=== PATIENT | male | born 2005 ===

== ENCOUNTER 2024-08-28 09:41 | Outpatient (RCR) | payer OTHER, SELFPAY ==
--- NOTE | 2024-08-28 10:57 | OPREHPOC ---
Outpatient Therapy Plan of Care This is a Multidisciplinary Plan of Care that may contain components documented by all disciplines (PT, OT, and ST.) PT Problem 1 PT Problem #1 Knowledge Deficit PT Goal 1 Goal / Goal Update 1. independent and compliant with HEP Target Visit 3 PT Problem 2 PT Problem #2 Pain PT Goal 1 Goal / Goal Update 1. 2/10 or less pain at worst in the L knee Target Visit 6 PT Problem 3 PT Problem #3 Impaired Range of Motion PT Goal 1 Goal / Goal Update 1. 0-125 degrees L knee active rom Target Visit 6 PT Problem 4 PT Problem #4 Impaired Strength PT Goal 1 Goal / Goal Update 1. 5/5 L knee extension Target Visit 6 PT Problem 5 PT Problem #5 Impaired Functional Mobil PT Goal 1 Goal / Goal Update 1. LEFS to display less than 20% functional deficits 2. normal gait mechanics 3. reciprocal pattern up and down steps 4. squat safely without pain or symptoms Target Visit 6
--- NOTE | 2024-08-28 10:57 | PTOPEVAL1 ---
Assessment and note entered by JT File, PT Evaluation Information Assessment Status Evaluation ICD-10 Condition Codes (PT) Pain in left knee M25.562 Onset 08/20/24 Subjective Information patient reports he has had trouble with his knees since playing sports when he was younger. 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 he reports it shot pain from the L knee down to the toes/feet and made his toes go numb. he reports the knee will pop from time to time and will be painful. he reports he feels the knee is going to give out on him at any time. he reports no major injuries to the knees when playing sports. he reports he was not able to get an MRI prior to trying therapy. he reports he has not seen an ortho. he was told by his PCP to try PT for 2 weeks then they can refer to an ortho if needed. he reports he works in a [employer]. 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 Reported Pain Level Pain Score 4: Self Report Assessment PT Clinical Summary mr. vaughan is a 18 yo man who presents to skilled PT for evaluation and treatment of L knee pain. he injured his L knee coming down from a forklift. he felt immediate pain, and his knee has continued to feel bad/worse since. he presents today with deficits in rom and strength of the L knee, pain with palpation around the medial jt line, and special testing that may indicate a meniscus injury to the L knee. he is mostly guarded with all special tests, but medial mcmurrays elicits the most pain/symptoms today. he would benefit from continued skilled PT to address his objective /functional deficits to return to prior level functional activity performance/quality of life. Plan of Care Interventions Electrical Stimulation,Gait Training,Hot Pack/Cold Pack,Manual Therapy,Neuro Re-education,Patient/ Caregiver Educati,Therapeutic Activities, Therapeutic Exercise PT Services Indicated Yes Treatment Frequency and 3x weekly for 6 visits Duration These treatments will address the objective and functional deficits as defined above. The patient will be advanced safely and appropriately in order for the patient to progress towards his/her prior level of function. Additional exercises will be introduced and as well as a comprehensive home exercise program upon discharge, if needed, ?to ensure carryover of functional gains achieved in the clinic. This treatment plan has been reviewed and agreement upon by the patient.
--- NOTE | 2024-08-30 14:02 | PCPTNOTE ---
Cancelled session due to flat tire.
--- NOTE | 2024-09-10 17:26 | OPREHPOC ---
Outpatient Therapy Plan of Care This is a Multidisciplinary Plan of Care that may contain components documented by all disciplines (PT, OT, and ST.) PT Problem 1 PT Problem #1 Knowledge Deficit PT Goal 1 Goal / Goal Update 1. independent and compliant with HEP Target Visit 3 Progress Met PT Problem 2 PT Problem #2 Pain PT Goal 1 Goal / Goal Update 1. 2/10 or less pain at worst in the L knee Target Visit 6 Progress Met PT Problem 3 PT Problem #3 Impaired Range of Motion PT Goal 1 Goal / Goal Update 1. 0-125 degrees L knee active rom Target Visit 6 Progress Met PT Problem 4 PT Problem #4 Impaired Strength PT Goal 1 Goal / Goal Update 1. 5/5 L knee extension Target Visit 6 Progress Met PT Problem 5 PT Problem #5 Impaired Functional Mobility PT Goal 1 Goal / Goal Update 1. LEFS to display less than 20% functional deficits 2. normal gait mechanics 3. reciprocal pattern up and down steps 4. squat safely without pain or symptoms Target Visit 6 Progress Met
--- NOTE | 2024-09-10 17:27 | PTOPDC ---
Assessment and note entered by JT File, PT Evaluation Information Assessment Status Discharge ICD-10 Condition Codes (PT) Pain in left knee M25.562 Onset 08/20/24 Subjective Information patient reports he feels Better today. he reports he has no pain in the R knee. he reports he has been back to work full hours and full duties. he reports he does not have a return to MD visit. Reported Pain Level Pain Score 0: Self Report Assessment PT Clinical Summary mr. vaughan presents to skilled PT services for his 6th skilled PT visit. he has met all goals for skilled PT, has no pain, and is back to full prior level work and rec activities. he will DC skilled PT to an independent HEP. he was advised to watch the knee and return to MD or PT with any return of pain/flare ups. Plan of Care PT Services Indicated Yes
== END 2024-09-10 17:29 | disposition home or self-care (01) ==
LOC: CHSPT 09:41
PROVIDERS: Visit Provider Nurse Practitioner
DX: M25.562 Pain in left knee (principal)
CPT/HCPCS: 97110; 97140; 97161; 97530

== ENCOUNTER 2025-03-12 15:05 | Emergency (ER) | payer OTHER, SELFPAY ==
[2025-03-12 15:19] VITALS: BP 148/78; PULSE 83; RESP 16; TEMP 37.1; O2SAT 99
--- NOTE | 2025-03-12 15:52 | ED.HEATRA ---
HPI - Head Injury General Chief complaint: Head Injury Stated complaint: Head Injury Time Seen by Provider: 03/12/25 15:34 Source: patient and RN notes reviewed Mode of arrival: ambulatory Limitations: no limitations History of Present Illness HPI Narrative: Patient presents today after he was struck on the head with a closing truck merritt while at work. 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 Denies loss of consciousness. Injury occurred approximately 1 hour prior to exam. Reports headache that he currently rates 6/10, mild wooziness, and difficulty focusing his eyes. Denies neck pain, vomiting. Related Data Allergies Allergy/AdvReac Type Severity Reaction Status Date / Time No Known Allergies Allergy Verified 03/12/25 15:23 Review of Systems Review of Systems: CONSTITUTIONAL: Denies body aches, fever, chills, or sweats. EYES: + vision change ENT: Denies rhinorrhea, congestion, sore throat, or otalgia. CARDIOVASCULAR: Denies chest pain, palpitations, or edema. RESPIRATORY: Denies cough or dyspnea. GASTROINTESTINAL: Denies abdominal pain, nausea, vomiting, or diarrhea. GENITOURINARY: Denies dysuria or hematuria. SKIN: Denies rash, itching, or wounds. MUSCULOSKELETAL: Denies back pain, joint pain, or myalgia. NEUROLOGIC: + head injury, headache, dizziness PSYCH: Denies depression or anxiety. PMFSH Comments At time of signature, I have reviewed and agree with nursing past medical, surgical, social and family history unless otherwise noted. Please see nursing chart for further information. There is no relevant family history pertinent to the presenting complaint Exam Narrative: GENERAL: Well-appearing, well-nourished, and in moderate pain distress. HEAD: Normocephalic. Palpated area of localized mild edema to the crown of the head without abrasion or open skin. This area is tender to palpation. EYES: EOMI. PERRL. No redness or drainage. Conjunctivae normal. No nystagmus. ENT: Mucous membranes pink and moist. NECK: Normal AROM. Supple. No lymphadenopathy. Mild tenderness to the left cervical paraspinal muscles. Go bent of the neck increases headache pain and nausea CHEST: No respiratory distress. Clear to auscultation. HEART: Regular rate and rhythm. No murmur appreciated. EXTREMITIES: Normal range of motion. No edema. SKIN: Warm, dry, no rash. Capillary refill normal. Normal skin turgor. NEURO: No focal deficits. Alert and oriented x3. Gait steady. Kwfmbd-qm-[id number] test normal. Hand worsted winder equal and strong. PSYCH: Normal affect. No signs of depression or anxiety. Course Course Level of Care: Express Care Visit Vital Signs Vital signs: Vital Signs Temperature 98.8 F 03/12/25 15:19 Pulse Rate 83 03/12/25 15:19 Respiratory Rate 16 03/12/25 15:19 Blood Pressure 148/78 H 03/12/25 15:19 Pulse Oximetry 99 03/12/25 15:19 Oxygen Delivery Room Air 03/12/25 15:19 Temperature 98.8 F 03/12/25 15:19 Pulse Rate 83 03/12/25 15:19 Respiratory Rate 16 03/12/25 15:19 Blood Pressure 148/78 H 03/12/25 15:19 Pulse Oximetry 99 03/12/25 15:19 Oxygen Delivery Room Air 03/12/25 15:19 Reviewed MDM - Head Injury MDM Narrative Medical decision making narrative: Patient likely has a mild concussion. Prescription for Zofran sent to pharmacy for nausea. Outpatient management appropriate. This will be a workmen's Comp claim. Recommend that patient rest, stay hydrated. He will need additional evaluation before returning to work. Anticipatory guidance given. ED precautions given. Differential Diagnosis Differential diagnosis: Likely concussion without loss of consciousness, closed head injury and other (Neck strain) Critical Care Time Critical Care Time Critical Care Time: No Discharge Plan Discharge Clinical Impression: Concussion Qualifiers: Encounter type: initial encounter Loss of consciousness presence/duration: without LOC Qualified Code(s): S06.0X0A - Concussion without loss of consciousness, initial encounter Patient Disposition: Home Condition: Stable Instructions: Concussion (ED), Post Concussion Syndrome (ED) Additional Instructions: Your symptoms are consistent with concussion. Rest, stay hydrated. Take Tylenol or ibuprofen for your headache. Take the Zofran for nausea/upset stomach if needed. The symptoms can last for up to a couple of weeks. Follow-up with your employer regarding a follow-up workman's compensation evaluation before your return to work. As discussed, if symptoms worsen, please go to the ER for further evaluation. Your blood pressure was elevated above 120/80 today at Urgent Care. This puts you above the threshold for follow up. Please schedule a followup visit with your personal physician as soon as possible, for further evaluation and treatment. Even blood pressure exceeding 120/80 may indicate pre-hypertension. Patient Language: Telugu Prescriptions: New ondansetron 8 mg tablet,disintegrating 8 mg PO Q4-6H PRN (Reason: nausea and vomiting) Qty: 20 0RF Follow-up/Referrals: PHYSICIAN,BRAKE ADJUSTER [Primary Care Provider] - Stand Alone Forms: Work/School Release IP Time of Disposition: 15:54
--- OUTSIDE RECORDS SUMMARY | 2025-03-12 16:58 | XMS_ITS ---
Author Organization Unknown Address [address] [place] [phone] Phone Care Team Providers Care Pool Hall Inspector Name Role Phone SULEIMAN HERNANDEZ Attending Unavailable MARILIA Braxton Primary Unavailable Immunization Immunization Date Status Additional Notes Code Code System MMR 10/15/2005 Completed 03 CVX MMR 04/10/2010 Completed 03 CVX Hep B, adolescent or pediatric 2004 Completed 08 CVX IPV 2004 Completed 10 CVX IPV 01/31/2005 Completed 10 CVX IPV 04/04/2005 Completed 10 CVX Hib, unspecified formulation 01/31/2005 Completed 17 CVX DTaP 2004 Completed 20 CVX DTaP 01/31/2005 Completed 20 CVX DTaP 04/04/2005 Completed 20 CVX DTaP 10/15/2005 Completed 20 CVX varicella 10/15/2005 Completed 21 CVX varicella 04/10/2010 Completed 21 CVX Hib-Hep B 2004 Completed 51 CVX Hib-Hep B 10/15/2005 Completed 51 CVX pneumococcal conjugate PCV 7 2004 Completed 100 CVX pneumococcal conjugate PCV 7 01/31/2005 Completed 100 CVX pneumococcal conjugate PCV 7 04/04/2005 Completed 100 CVX pneumococcal conjugate PCV 7 10/15/2005 Completed 100 CVX meningococcal MCV4P 08/01/2016 Completed 114 CVX Tdap 08/01/2016 Completed 115 CVX DTaP-IPV 04/10/2010 Completed 130 CVX Influenza, split virus, quadrivalent, PF 08/01/2016 Completed 150 CVX Results KNEE 3V LEFT - Completed: 14:02 LOINC: EXAM DESCRIPTION: KNEE 3V LEFT REASON FOR STUDY: twisted knee jumping off fork lift left medial knee pain radiates down left leg hx of popping in knee no previous fx or sx Duration: 6 days TECHNIQUE: 3 radiographic view(s) of the left knee . COMPARISON: None FINDINGS: There is no definite evidence of acute displaced fracture or dislocation involving the left knee. There is a trace suprapatellar joint effusion. IMPRESSION: ? ? No definite evidence of acute displaced fracture or dislocation involving the left knee. ? ? Trace suprapatellar joint effusion. If there is clinical concern for underlying ligamentous injury, then further evaluation with MRI is recommended. THIS IS AN ELECTRONICALLY VERIFIED FINAL REPORT 08/26/2024 2:33 PM - Electronically signed by Fanny Bryant D.O. PS: PS Report ID: [id number] Reading Location: [place] [address] Social History Type Status Start Date End Date Code Code Syst em Smoking History Never smoker (Never Smoked) 893369344 SNOMED CT Sex Male Hospital Discharge Instructions Should you have any questions prior to discharge, please contact a member of your healthcare team. If you have left the hospital and have any questions, please contact your primary care physician. Reason For Referral No Data Found Plan of Treatment No Data Found Encounters Encounter Diagnosis Start Date Code Code Sys tem 08/26/2024 [id number] SNOMED-CT Personal Care Team Section Imaging Narrative Notes
--- OUTSIDE RECORDS SUMMARY | 2025-03-12 17:04 | XMS_ITS ---
Author Organization Unknown Address [address] [place] [phone] Phone Care Team Providers Care Material Mover Name Role Phone SULEIMAN HERNANDEZ Attending Unavailable [...] Fanny Bryant D.O. PS: PS Report ID: [id number] Reading Location: [place] [address] Social History Type Status Start Date End Date Code Code Syst em Smoking History Never smoker (Never Smoked) [id number] SNOMED CT Sex Male Hospital Discharge Instructions Should you have any questions prior to discharge, please contact a member of your healthcare team. If you have left the hospital and have any questions, please contact your primary care physician. Reason For Referral No Data Found Plan of Treatment No Data Found Encounters Encounter Diagnosis Start Date Code Code Sys tem 08/26/2024 [id number] SNOMED-CT Personal Care Team Section Imaging Narrative Notes
== END 2025-03-12 16:02 | disposition home or self-care (01) ==
PROVIDERS: Emergency Provider Nurse Practitioner
DX: S06.0X0A Concussion without loss of consciousness, initial encounter (principal); W20.8XXA Other cause of strike by thrown, projected or falling object, initial encounter; Y99.0 Civilian activity done for income or pay
CPT/HCPCS: 99203; G0463